=== PATIENT | male | born 1980 | race Caucasian/White ===

== ENCOUNTER 2018-02-12 17:19 | Emergency (ER) | payer OTHER ==
[2018-02-12 17:27] VITALS: BP 151/81
--- NOTE | 2018-02-12 17:55 | EDPHY ---
H & P Stated Complaint: Girlfriends dog bit pt [facility] [place], animal control involved already Time Seen by Provider: 02/12/18 17:45 HPI/ROS: HPI: This is a 37-year-old male who presents with Chief Complaint: Girlfriends dog bit pt [facility] [place], animal control involved already Location: Left forearm Quality: Dog Duration: More than 24 hr ago Signs and Symptoms: No bleeding, no radiation, no numbness, no weakness, no tingling, no incontinence, no decreased range of motion, no swelling, no pain, no fever Timing: Acute, improving Severity: Mild Context: Patient is right-hand dominant, presents to the emergency room with concerns of dog bite on his left forearm being more serious than his girlfriend the dog's reprint sorter believes it to be. Patient reports that he returned home from his 1st day of work at his new job today and his girlfriend was not supportive of his injury that he sustained greater than 24 hr ago. The dog is a pimple on by his girlfriend and is up-to-date on vaccinations including rabies. Animal control was called yesterday and took the dog into their facility for 24 hr for monitoring. Patient denies any paresthesias, weakness, skin color changes, radiation. Reports that after the dog bite occurred he washed with soap and water and rinsed with hydrogen peroxide. Modifying Factors: See above Comment: ROS: A comprehensive 10 system review of systems is otherwise negative aside from elements mentioned in the history of present illness. MEDICAL/SURGICAL/SOCIAL HISTORY: Medical history: double hernia, sleep apnea, lower back problems Surgical history: Denies Social history: Former smoker. CONSTITUTIONAL: Anxious adult white male, wearing sunglasses indoors, awake and alert, no obvious distress HEENT: Atraumatic and normocephalic. NECK: supple EXTREMITIES: 2/2 pulses, strength 5/5, left forearm cut shows 3 very superficial linear abrasions approximately 0.5 in in length that have scabs covering them with no surrounding erythema, discharge, fluctuance. There is slight bruising surrounding the area of the soft tissue. DIP/PIP/MCP flexion/ extension intact with good light touch sensation. no deformities, no clubbing, no cyanosis or edema. NEUROLOGICAL: no focal neuro deficits. GCS 15. Light touch sensation intact. SKIN: Warm and dry, no erythema. no rash. Good capillary refill. Source: Patient Exam Limitations: No limitations - Personal History Current Tetanus Diphtheria and Acellular Pertussis (TDAP): Unsure - Medical/Surgical History Other PMH: double hernia. sleep apnea. lower back problems - Social History Smoking Status: Former smoker Constitutional: Initial Vital Signs Temperature (C) 36.7 C 02/12/18 17:23 Heart Rate 67 02/12/18 17:23 Respiratory Rate 16 02/12/18 17:23 Blood Pressure 151/81 H 02/12/18 17:23 O2 Sat (%) 97 02/12/18 17:23 O2 Delivery Mode Room Air Allergies/Adverse Reactions: amoxicillin Allergy (Severe, Verified 02/12/18 17:23) throat closes up Home Medications: Medication Instructions Recorded Doxycycline Hyclate 100 mg PO BID #13 tablet 02/12/18 Medical Decision Making ED Course/Re-evaluation: Tetanus booster given Patient has a allergy to penicillin; given doxycycline in the ER and prescription for same. No indication for rabies prophylaxis. Advised supportive care. No signs of neurovascular compromise/tenting of skin/compartment syndrome/ extremities and joints examined above and below area of concern and are neurovascularly intact/cellulitis. This patient was seen under the supervision of my secondary supervising physician. I evaluated care for this patient independently. Discussed this patient with Dr. Ragland. Differential Diagnosis: Differential diagnosis includes but is not limited to abrasion, laceration, puncture wound, cellulitis, compartment syndrome. Departure - Departure Disposition: Home, Routine, Self-Care Clinical Impression: Dog bite of left forearm without complication Qualifiers: Encounter type: initial encounter Qualified Code(s): S51.852A - Open bite of left forearm, initial encounter Condition: Good Instructions: Animal Bite (ED) Additional Instructions: Wash the site daily with antibacterial soap and water; then pat dry. Take Tylenol 650 mg every 4 hours and/or Ibuprofen 600 mg every 8 hours with food as needed for pain. Take antibiotics as directed until complete. Do not skip a dose. If no improvement in 3-4 days, follow up [facility] for [facility]. Return to the ER immediately if you experience redness, red streaks, have fevers /chills, flu like symptoms, limited range of motion, or any other symptoms that concern you. Referrals: [facility],. [Clinic] - 3-4 days, if not improved Prescriptions: Doxycycline Hyclate 100 mg PO BID #13 tablet
[2018-02-12] MEDS ORDERED: TDAP ADULT 0.5 ML INJ (BOOSTRIX) IM ONE (17:56)
[2018-02-12] MEDS ORDERED: DOXYCYCLINE HYCLATE 100 MG CAP/TAB PO ONE (17:56)
== END 2018-02-12 18:14 | disposition home or self-care (01) ==
DX: S51.852A Open bite of left forearm, initial encounter (principal); Z23 Encounter for immunization; W54.0XXA Bitten by dog, initial encounter; Y92.9 Unspecified place or not applicable; Z87.891 Personal history of nicotine dependence